=== PATIENT | male | born 1980 | race African-American/Black ===

== ENCOUNTER 2024-11-30 08:39 | Emergency (ER) | payer OTHER, SELFPAY ==
--- NOTE | ~2024-11-30 | XR_ITS ---
EXAMINATION: XR ankle RT min 3V, 11/30/2024 8:50 CDT HISTORY: rolled this morning. Lateral pain COMPARISON: No comparisons available. Findings: No acute fracture or malalignment. No significant degenerative changes. Soft tissues unremarkable. Impression: No acute fracture or malalignment. Reviewed, dictated and finalized at location P. Impression: No acute fracture or malalignment.
[2024-11-30 08:45] VITALS: BP 98/69; PULSE 73; RESP 16; TEMP 37; O2SAT 98
--- NOTE | 2024-11-30 09:05 | ED_ITS ---
HPI - Extremity Injury (Lower) General Chief Complaint: Extremity Injury, Lower Stated Complaint: right ankle injury Time Seen by Provider: 11/30/24 08:45 Source: patient and RN notes reviewed Mode of arrival: ambulatory Limitations: no limitations History of Present Illness HPI Narrative: 44-year-old male patient presents today complaining of right ankle pain. At 0400 this morning, he rolled his ankle while walking down some stairs. He took 2 ibuprofen prior to arrival without improvement of symptoms and currently rates his pain 25/10. Denies numbness or tingling. Related Data Allergies Allergy/AdvReac Type Severity Reaction Status Date / Time No Known Allergies Allergy Unknown Verified 11/30/24 08:57 PMFSH Comments At time of signature, I have reviewed and agree with nursing past medical, surgical, social and family history unless otherwise noted. Please see nursing chart for further information. There is no relevant family history pertinent to the presenting complaint Exam Narrative: GENERAL: Well-appearing, well-nourished, and in no acute distress. HEAD: Normocephalic, atraumatic. EYES: EOMI. No redness or drainage. Conjunctivae normal. ENT: Mucous membranes pink and moist. NECK: Normal AROM. CHEST: No respiratory distress. EXTREMITIES: Right ankle: Tenderness and moderate swelling to the lateral malleolus. No tenderness medially, anteriorly, or posteriorly. No tenderness to the foot. Distal sensation intact. Capillary refill normal. Pedal pulse normal. Full range of motion of the ankle with mild increased pain. SKIN: Warm, dry, no rash. Capillary refill normal. Normal skin turgor. NEURO: No focal deficits. Alert and oriented x3. Gait steady. PSYCH: Normal affect. No signs of depression or anxiety. Course Course Level of Care: Express Care Visit Vital Signs Vital signs: Vital Signs Temperature 98.6 F 11/30/24 08:45 Pulse Rate 73 11/30/24 08:45 Respiratory Rate 16 11/30/24 08:45 Blood Pressure 98/69 L 11/30/24 08:45 Pulse Oximetry 98 11/30/24 08:45 Oxygen Delivery Room Air 11/30/24 08:45 Temperature 98.6 F 11/30/24 08:45 Pulse Rate 73 11/30/24 08:45 Respiratory Rate 16 11/30/24 08:45 Blood Pressure 98/69 L 11/30/24 08:45 Pulse Oximetry 98 11/30/24 08:45 Oxygen Delivery Room Air 11/30/24 08:45 Reviewed MDM - Extremity Injury (Lower) MDM Narrative Medical decision making narrative: 44-year-old male patient presents today complaining of right ankle pain. At 0400 this morning, he rolled his ankle while walking down some stairs. He took 2 ibuprofen prior to arrival without improvement of symptoms and currently rates his pain 25/10. Upon exam, patient has some moderate swelling laterally with tenderness to the affected area. Neurovascularly intact. X-rays negative for fracture. German wrap applied. Patient requesting crutches. Recommend ortho follow up in 7-10 days if symptoms are not improving. Recommend RICE treatment. Patient agrees with plan. Anticipatory guidance given. Vital signs stable Differential Diagnosis Differential diagnosis: Likely ankle sprain and strain and ankle fracture Imaging Data Radiologist's impression: ITS Impressions Ankle X-Ray 11/30/24 09:02 Impression: No acute fracture or malalignment. Critical Care Time Critical Care Time Critical Care Time: No Discharge Plan Discharge Clinical Impression: Right ankle sprain Qualifiers: Encounter type: initial encounter Involved ligament of ankle: unspecified ligament Qualified Code(s): S93.401A - Sprain of unspecified ligament of right ankle, initial encounter Patient Disposition: Home Condition: Stable Instructions: Ankle Sprain (DC) Additional Instructions: Your x-rays negative for fracture. Wear the German wrap and use crutches for comfort. Advance your activity as tolerated. Elevate and ice your ankle. Take Tylenol or ibuprofen for pain, if able. Follow-up with orthopedics in 7-10 days if symptoms are not improving. Patient Language: [place]ic Follow-up/Referrals: PHYSICIAN,EVAPORATOR REPAIRER [Primary Care Provider, Internal Medicine] Juan A Montiel MD [Physician, Orthopedics] Stand Alone Forms: Work/School Release IP Time of Disposition: 09:32
== END 2024-11-30 09:37 | disposition home or self-care (01) ==
PROVIDERS: Emergency Provider Nurse Practitioner
DX: S93.401A Sprain of unspecified ligament of right ankle, initial encounter (principal); X50.9XXA Other and unspecified overexertion or strenuous movements or postures, initial encounter
CPT/HCPCS: 73610; 99203; G0463